=== PATIENT | female | born 1950 | race Caucasian/White ===

== ENCOUNTER 2017-02-21 17:07 | Emergency (ER) | payer BC, MEDICARE ==
[~2017-02-21] VITALS: Ht 154.9 cm; Wt 55.0 kg
[~2017-02-21 17:07] MED LIST: ABIL15TA2 PO; APIX5TAB PO; GABA600T PO; LEVA500T PO; METO50TA PO
--- NOTE | 2017-02-21 17:20 | PD ---
HPI Chief Complaint: ba Time Seen by Provider: 17:20 Travel History International Travel<30 days: No Contact w/Intl Traveler<30days: No Traveled to known affect area: No History of Present Illness HPI 67 year-old female history of bipolar disorder presents to the emergency department under a Dye act for psychiatric evaluation. Patient was at her psychiatrist's office and feels that her medication is not working. She made suicidal comments. She states this was out of frustration because she feels as though her medication is not working. Patient does report that she had a plan to overdose with pills or to take poison but states that she does not want to commit suicide. Denies any chest tightness. No difficulty breathing. No urinary symptoms. Patient has no other recent illnesses, fever, or chills. States that she has been taking her medication as directed. She has no other symptoms to report. 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.) Cardiovascular Problems: No High Cholesterol: No Chemotherapy: No Chest Pain: No Congestive Heart Failure: No COPD: No Cerebrovascular Accident: No Diabetes: No Diminished Hearing: No Endocrine: No Gastrointestinal Disorders: No GERD: No Genitourinary: Yes (HX OF UTI) Hiatal Hernia: No Hypertension: Yes Immune Disorder: No Kidney Stones: No Musculoskeletal: No Neurologic: Yes (BIPOLAR) Psychiatric: Yes (BIPOLAR) Reproductive: No Immunizations Current: Yes Migraines: No Radiation Therapy: No Renal Failure: No Seizures: No Sickle Cell Disease: No Sleep Apnea: No Thyroid Disease: No Ulcer: No Menopausal: Yes Past Surgical History Abdominal Surgery: No AICD: No Arteriovenous Shunt: No Cardiac Surgery: No Ear Surgery: No Endocrine Surgery: No Eye Surgery: No Genitourinary Surgery: No Gynecologic Surgery: No Insulin Pump: No Joint Replacement: No Oral Surgery: No Pacemaker: No Thoracic Surgery: No Other Surgery: Yes (BREAST LIFT 8 YRS AGO) Social History Alcohol Use: No Tobacco Use: No Substance Use: No Allergies-Medications (Allergen,Severity, Reaction): Coded Allergies: Codeine (Verified Allergy, Severe, 06/07/16) Reported Meds & Prescriptions Reported Meds & Active Scripts Active Reported Gabapentin 600 Mg Tab 600 Mg PO BID Metoprolol Tartrate 50 Mg Tab 50 Mg PO BID Eliquis (Apixaban) 2.5 Mg Tab 2.5 Mg PO BID Review of Systems Except as stated in HPI: all other systems reviewed are Neg Physical Exam Narrative GENERAL: Well-nourished female patient, ambulatory and in no acute distress SKIN: Focused skin assessment warm/dry. HEAD: Atraumatic. Normocephalic. EYES: Pupils equal and round. No scleral icterus. No injection or drainage. ENT: No nasal bleeding or discharge. Mucous membranes pink and moist. NECK: Trachea midline. No JVD. CARDIOVASCULAR: Regular rate and rhythm. No murmur appreciated. RESPIRATORY: No accessory muscle use. Clear to auscultation. Breath sounds equal bilaterally. GASTROINTESTINAL: Abdomen soft, non-tender, nondistended. Hepatic and splenic margins not palpable. MUSCULOSKELETAL: No obvious deformities. No clubbing. No cyanosis. No edema. NEUROLOGICAL: Awake and alert. No obvious cranial nerve deficits. Motor grossly within normal limits. Normal speech. PSYCHIATRIC: Bizarre affect. Data Data Last Documented VS Vital Signs Date Time Temp Pulse Resp B/P Pulse Ox O2 Delivery O2 Flow Rate FiO2 02/21/17 21:32 98.2 78 20 111/64 Room Air Orders Complete Blood Count With Diff (02/21/17 17:12) Basic Metabolic Panel (Bmp) (02/21/17 17:12) Urinalysis - C+S If Indicated (02/21/17 17:12) Cath For Specimen (02/21/17 17:12) Psych Screen (02/21/17 17:12) Drug Screen, Random Urine (02/21/17 17:12) Alcohol (Ethanol) (02/21/17 17:12) Sodium Chlorid 0.9% 500 Ml Inj (Ns 500 M (02/21/17 18:45) Iv Access Insert/Monitor (02/21/17 18:45) Urine Culture (02/21/17 19:05) Ceftriaxone Inj (Rocephin Inj) (02/21/17 20:00) Cephalexin (Keflex) (02/22/17 09:00) Labs Laboratory Tests Test 02/21/17 02/21/17 17:30 19:05 White Blood Count 9.3 TH/MM3 Red Blood Count 4.31 MIL/MM3 Hemoglobin 14.5 GM/DL Hematocrit 43.2 % Mean Corpuscular Volume 100.3 FL Mean Corpuscular Hemoglobin 33.8 PG Mean Corpuscular Hemoglobin 33.6 % Concent Red Cell Distribution Width 13.2 % Platelet Count 233 TH/MM3 Mean Platelet Volume 9.5 FL Neutrophils (%) (Auto) 72.6 % Lymphocytes (%) (Auto) 16.6 % Monocytes (%) (Auto) 8.7 % Eosinophils (%) (Auto) 1.7 % Basophils (%) (Auto) 0.4 % Neutrophils # (Auto) 6.8 TH/MM3 Lymphocytes # (Auto) 1.5 TH/MM3 Monocytes # (Auto) 0.8 TH/MM3 Eosinophils # (Auto) 0.2 TH/MM3 Basophils # (Auto) 0.0 TH/MM3 CBC Comment DIFF FINAL Differential Comment Sodium Level 144 MEQ/L Potassium Level 4.1 MEQ/L Chloride Level 109 MEQ/L Carbon Dioxide Level 26.2 MEQ/L Anion Gap 9 MEQ/L Blood Urea Nitrogen 41 MG/DL Creatinine 1.98 MG/DL Estimat Glomerular Filtration 25 ML/MIN Rate Random Glucose 127 MG/DL Calcium Level 9.4 MG/DL Ethyl Alcohol Level LESS THAN 3 MG/DL Urine Color YELLOW Urine Turbidity HAZY Urine pH 5.5 Urine Specific Gepp 1.011 Urine Protein TRACE mg/dL Urine Glucose (UA) NEG mg/dL Urine Ketones NEG mg/dL Urine Occult Blood TRACE Urine Nitrite NEG Urine Bilirubin NEG Urine Urobilinogen LESS THAN 2.0 MG/DL Urine Leukocyte Esterase LARGE Urine RBC 5 /hpf Urine WBC 48 /hpf Urine Squamous Epithelial 12 /hpf Cells Urine Transitional Epithelial 6 /hpf Cells Urine Bacteria MOD /hpf Urine Mucus FEW /lpf Microscopic Urinalysis Comment CULTURE INDICATED Urine Opiates Screen NEG Urine Barbiturates Screen NEG Urine Amphetamines Screen NEG Urine Benzodiazepines Screen NEG Urine Cocaine Screen NEG Urine Cannabinoids Screen NEG MDM Medical Decision Making Medical Screen Exam Complete: Yes Emergency Medical Condition: Yes Medical Record Reviewed: Yes Differential Diagnosis Mood disorder versus personality disorder versus adjustment reaction disorder versus UTI versus electrolyte abnormality Narrative Course 67 year-old female presents to emergency department under a Dye act for psychiatric evaluation. Patient appears well and without distress. CBC is without acute concern. BMP is with BUN of 41, creatinine 1.98, GFR 25. Patient does have a history of stage III chronic kidney disease. Urinalysis is hazy with trace occult blood, large leukocyte esterase, 5 RBC, 48 WBC, moderate bacteria, few mucus. Culture is indicated. Patient is given 1 g of Rocephin and will be started on Keflex by mouth. She is medically cleared to undergo psychiatric screening for further evaluation and disposition. Mental health screening discussed with the patient. Psychiatric screen ordered. Diagnosis Primary Impression: Adjustment reaction Qualified Code: F43.21 - Adjustment disorder with depressed mood Additional Impression: UTI (urinary tract infection) Qualified Code: N39.0 - Urinary tract infection with hematuria, site unspecified Condition: Stable Lexi Huston Feb 21, 2017 17:20
[2017-02-21 17:41] VITALS: TEMP 98.3
[2017-02-21 17:55] LABS: AUTOMATED NEUTROPHIL # 6.8 TH/MM3 (1.8-7.7); BASOPHIL % 0.4 % (0.0-2.0); EOSINOPHIL # 0.2 TH/MM3 (0-0.4); EOSINOPHIL % 1.7 % (0.0-4.0); HEMATOCRIT 43.2 % (35.0-46.0); HEMO FLAGS DIFF FINAL; LYMPH % 16.6 % (9.0-44.0); LYMPHOCYTE # 1.5 TH/MM3 (1.0-4.8); MEAN CELL VOLUME 100.3 FL (80.0-100.0); MEAN CORPUSCULAR HEMOGLOBIN 33.8 PG (27.0-34.0); MEAN CORPUSCULAR HGB CONC 33.6 % (32.0-36.0); MONO % 8.7 % (0.0-8.0); NEUT % 72.6 % (16.0-70.0); PLATELET COUNT 233 TH/MM3 (150-450); RED BLOOD COUNT 4.31 MIL/MM3 (4.00-5.30); RED CELL DISTRIBUTION WIDTH 13.2 % (11.6-17.2); WHITE BLOOD COUNT 9.3 TH/MM3 (4.0-11.0)
[2017-02-21 18:32] LABS: ANION GAP 9 MEQ/L (5-15); BICARBONATE 26.2 MEQ/L (21.0-32.0); BLOOD UREA NITROGEN 41 MG/DL (7-18); CHLORIDE 109 MEQ/L (98-107); GLOMERULAR FILTRATION RATE 25 ML/MIN (>89); POTASSIUM 4.1 MEQ/L (3.5-5.1); SODIUM (NA) 144 MEQ/L (136-145)
[2017-02-21] MEDS ORDERED: SODIUM CHLORID 0.9% 500 ML INJ 500 ML IV ONE (18:45)
[2017-02-21 19:32] LABS: BACTERIA, URINE MOD /hpf; BLOOD, URINE TRACE (NEG); COMMENT (UR) CULTURE INDICATED; CULTURE IF INDICATED CULTURE INDICATED; GLUCOSE,URINE NEG (NEG); KETONE, URINE NEG (NEG); MUCUS URINE FEW /lpf (OCC); NITRITE,URINE NEG (NEG); PH, URINE 5.5 (5.0-8.5); SQUAMOUS EPITHELIAL CELL URINE 12 /hpf (0-5); TRANSITIONAL EPI CELLS, URINE 6 /hpf; URINE COLOR YELLOW (YELLW/STRAW)
[2017-02-21 19:43] LABS: AMPHETAMINE, URINE NEG (NEG); BARBITURATES, URINE NEG (NEG); COCAINE, URINE NEG (NEG)
[2017-02-21] MEDS ORDERED: cefTRIAXone INJ 1,000 MG in SODIUM CHLORIDE 0.9% INJ 100 ML IV ONE (20:00)
[2017-02-21] MEDS ORDERED: GABA600T PO (20:57)
[2017-02-21] MEDS ORDERED: APIX2.5T PO (20:57)
[2017-02-21] MEDS ORDERED: METO50TA PO (20:57)
[2017-02-21 21:30] VITALS: BP 139/65; PULSE 81; RESP 18; TEMP 98.5; O2SAT 96
[2017-02-21 21:32] VITALS: BP 111/64; PULSE 78; RESP 20; TEMP 98.2
[2017-02-22 02:33] VITALS: BP 127/60; PULSE 152; RESP 18; O2SAT 97
[2017-02-22 06:24] VITALS: BP 144/65; PULSE 102; RESP 18; O2SAT 95
[2017-02-22] MEDS ORDERED: CEPHALEXIN MONOHYDRATE 500 MG CAP PO SCH (09:00)
[2017-02-22 09:52] VITALS: BP 154/63; PULSE 100; RESP 18
[2017-02-22] MEDS ORDERED: CEPH-460 PO (11:25)
[2017-02-22 11:35] VITALS: BP 154/63; TEMP 98.2
--- NOTE | 2017-02-22 15:29 | MB ---
cc: PATO POZO DATE OF CONSULTATION: 02/22/2017. REASON FOR CONSULTATION: Dye Act. PHYSICIAN REQUESTING CONSULTATION: Emergency department. HISTORY OF PRESENT ILLNESS Ms. Esparza is a 67-year-old female with history of bipolar illness who presents under a Dye Act from her psychiatrist, Dr. Aden, for suicidal ideation. Reviewing the electronic medical record, I see no prior psychiatric admissions within our system but I do see that she was seen in consultation by Dr. Hendricks in 2013. The patient was seen and examined. Chart reviewed. Case discussed with nursing staff. On my examination, there has been no evidence of any suicidality or homicidality while under observation in the emergency room. On my examination today, the patient presents as somewhat childlike. She denies any suicidal or homicidal ideation, intent or plan. She says that she would never hurt herself on account of her Protestant kee. She says that she has been working with Dr. Aden on medication adjustments but continues to feel somewhat depressed. Sleep and appetite are fair. No hopeless or worthless feelings. No anhedonia. No other depressive symptoms. No hypomanic or manic symptoms. Denies audiovisual hallucinations and I can elicit no delusional beliefs. The remainder of the psychiatric review of systems is negative. The patient does admit to describing a suicidal plan to Dr. Aden to overdose on Eliquis but she says that this was only speculation on her part in response to a question by Dr. Aden about how she might hurt herself if she wanted to, but she emphasizes that she does not wish to hurt herself at this time. With the patient's permission, we have obtained collateral from the patient's cousin with whom she lives. The patient's cousin reports that he is guardian of the patient and that the patient has a longstanding history of making similar attention-seeking suicidal threats. He has absolutely no concerns about the patient being a risk of harm to herself or others per nursing staff. He is willing to accept the patient home. PAST PSYCHIATRIC HISTORY: Includes a history of bipolar disorder. She is treated by Dr. Aden for the last four years and sees him about monthly. She reports her most recent psychiatric admission was about 40 years ago at a place called [facility]. She denies a history of suicide attempts. FAMILY HISTORY: The patient believes that her paternal aunts x2 had a mental breakdowns but otherwise denies any family psychiatric history. She denies any history of suicide or substance use disorder in the family. CHEMICAL DEPENDENCY HISTORY: The patient denies a history of abuse of drugs or alcohol. SOCIAL HISTORY: The patient lives with her cousin in [place]. 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 Denies any or legal history. Denies any access to guns or firearms. She is single with no children. She is a Protestant. PAST MEDICAL HISTORY: The patient reports a history of kidney problems. REVIEW OF SYSTEMS: No reported headache, vision or hearing changes, chest pain, shortness of breath, bowel or bladder issues. No other physical complaints. PHYSICAL EXAMINATION: VITAL SIGNS: Temperature 98.2, pulse 100, respirations 18, blood pressure 154/63, pulse oximetry 95% on room air. Physical examination was completed by the ED provider. On my examination today, the patient appears to be in no acute physical distress. No motor abnormalities noted. LABORATORY DATA: Reviewed: CBC is unremarkable. Her BMP reveals decreased GFR at 25 and mildly elevated glucose in a nonfasting sample. Toxicology negative. Alcohol level undetectable. Urinalysis with elevated white blood cells and large leukocyte esterase but urine culture is pending. MENTAL STATUS EXAMINATION: The patient is in hospital gown. She is fairly well-groomed and maintaining basic hygiene. She is awake and alert and oriented to person and hospital at least. No evidence of delirium. No motor abnormalities noted. Speech is within normal limits for rate, tone and volume. Language and fund of knowledge seem average. Mood is mildly depressed and affect is somewhat childlike. Thought process linear. No loosening of associations. No evident delusions. Denies audiovisual hallucinations. Denies suicidal or homicidal ideation, intent or plan. Insight and judgment are fair at best. ASSESSMENT AND PLAN: Bipolar disorder, currently depressed mild, F31.31. This is a 67-year-old female with psychiatric history as detailed above who presented to the emergency department under a Dye Act. Per the patient's cousin, the patient has a history of making attention-seeking suicidal threats. He has no concerns about her safety in this regard. She denies any suicidal or homicidal ideation. She appears to be attending to her basic needs. There is no evidence of any severely unstable mood, anxiety or psychotic disorder in this patient at this time. Synthesizing the above information and weighing the relevant factors and based on the available information, I clinical massage therapist that the patient does not meet Dye Act criteria. I have lifted the Dye Act. The patient is requesting discharge from the inpatient psychiatric emergency room this morning and so I must recommend her discharge. She should follow up with Dr. Aden on an outpatient basis. She should remain adherent with her psychotropic medications. I have counseled the patient regarding warning signs for need to return to the psychiatric emergency room as part of a general safety plan. The patient is otherwise psychiatrically clear for discharge from the emergency department. Thank you very much for this consultation. Pato Pozo DC/ILYA /11:39 AM /3:18 PM KASIA
== END 2017-02-22 12:05 | disposition home or self-care (01) ==
LOC: NEPC 17:07 → NEPJ 02-22 12:05
DX: F43.21 Adjustment disorder with depressed mood (principal); N39.0 Urinary tract infection, site not specified; F31.31 Bipolar disorder, current episode depressed, mild; I10 Essential (primary) hypertension; Z79.01 Long term (current) use of anticoagulants
CPT/HCPCS: 80048; 80307; 81001; 85025; 87086; 96361; 96365; 99284; J0696; J7040

== ENCOUNTER 2017-04-13 18:40 | Emergency (ER) | payer MEDICARE ==
[~2017-04-13] VITALS: Ht 152.4 cm; Wt 52.0 kg
[~2017-04-13 18:40] MED LIST changes: -ABIL15TA2 PO; +APIX2.5T PO; -APIX5TAB PO; +CEPH-460 PO; -LEVA500T PO
[2017-04-13 18:43] VITALS: BP 144/75; PULSE 89; RESP 20; TEMP 97.9; O2SAT 98
[2017-04-13] MEDS ORDERED: LORazepam 1 MG TAB PO ONE (19:30)
--- NOTE | 2017-04-13 19:39 | RADRPT ---
EXAM DATE/TIME: 04/13/2017 19:15 [facility] COMPARISON: CHEST SINGLE AP, June 07, 2016, 18:18. INDICATIONS : Light headedness with feeling of pacemaker having moved. MEDICAL HISTORY : Chronic obstructive pulmonary disease. SURGICAL HISTORY : Pacemaker. ENCOUNTER: Initial ACUITY: 1 day PAIN SCORE: 0/10 LOCATION: Bilateral chest FINDINGS: A single view of the chest demonstrates the lungs to be symmetrically aerated without evidence of mas s, infiltrate or effusion. Left-sided pacemaker with 2 intact leads. Heart normal in size. Extensive scoliosis The cardiomediastinal contours are unremarkable. Osseous structures are intact. CONCLUSION: No acute disease. Josse Phelps MD on April 13, 2017 at 19:37 Board Certified Radiologist. This report was verified electronically.
[2017-04-13] MEDS ORDERED: LURA20TA PO (20:16)
[2017-04-13] MEDS ORDERED: SERT-132 PO (20:16)
--- NOTE | 2017-04-13 21:13 | PD ---
HPI Chief Complaint: Dialysis Technician Problem Time Seen by Provider: 21:01 Travel History International Travel<30 days: No Contact w/Intl Traveler<30days: No Traveled to known affect area: No History of Present Illness HPI 67-year-old female that presents to the ED for evaluation of pacemaker moved. Patient states that she's noted today that the pacemaker move down someone. She denies any pain with. She denies any chest pain. No shortness of breath. Per patient he seems to be working. She is mainly concerned and anxious because it moved. She's had it for over a year. Patient has not contacted his inspector floor. Denies any other medical complaint. No pain. No fevers. 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.) Cardiovascular Problems: Yes High Cholesterol: No Chemotherapy: No Chest Pain: No Congestive Heart Failure: No COPD: No Cerebrovascular Accident: No Diabetes: No Diminished Hearing: No Endocrine: No Gastrointestinal Disorders: No GERD: No Genitourinary: Yes (HX OF UTI) Headaches: No Hiatal Hernia: No Heparin Induced Thrombocytopen: No Hypertension: Yes Immune Disorder: No Implanted Vascular Access Dvce: No Kidney Stones: No Musculoskeletal: No Neurologic: Yes (BIPOLAR) Psychiatric: Yes (BIPOLAR) Reproductive: No Immunizations Current: Yes Migraines: No Radiation Therapy: No Renal Failure: No Seizures: No Sickle Cell Disease: No Sleep Apnea: No Thyroid Disease: No Ulcer: No Tetanus Vaccination: < 5 Years ?: Not Menopausal: Yes Past Surgical History Abdominal Surgery: No AICD: No Arteriovenous Shunt: No Cardiac Surgery: Yes (pacemaker ) Ear Surgery: No Endocrine Surgery: No Eye Surgery: No Genitourinary Surgery: No Gynecologic Surgery: No Insulin Pump: No Joint Replacement: No Neurologic Surgery: No Oral Surgery: No Pacemaker: Yes Thoracic Surgery: No Other Surgery: Yes (BREAST LIFT 8 YRS AGO) Social History Alcohol Use: No Tobacco Use: No Substance Use: No Allergies-Medications (Allergen,Severity, Reaction): Coded Allergies: Codeine (Verified Allergy, Severe, 06/07/16) Reported Meds & Prescriptions Reported Meds & Active Scripts Active Reported Sertraline (Sertraline HCl) 50 Mg Tab 75 Mg PO DAILY Latuda (Lurasidone) 20 Mg Tab 20 Mg PO DAILY Gabapentin 600 Mg Tab 600 Mg PO BID Metoprolol Tartrate 50 Mg Tab 50 Mg PO BID Eliquis (Apixaban) 2.5 Mg Tab 2.5 Mg PO BID Review of Systems Except as stated in HPI: all other systems reviewed are Neg Physical Exam Narrative GENERAL: SKIN: Warm and dry. HEAD: Atraumatic. Normocephalic. EYES: Pupils equal and round. No scleral icterus. No injection or drainage. ENT: No nasal bleeding or discharge. Mucous membranes pink and moist. Tongue is midline. No uvula deviation. NECK: Trachea midline. No JVD. CARDIOVASCULAR: Regular rate and rhythm. No murmurs, S3, S4. Patient does have pacemaker still in place that appears to be lower than what it used to be per patient. RESPIRATORY: No accessory muscle use. Clear to auscultation. Breath sounds equal bilaterally. GASTROINTESTINAL: Abdomen soft, non-tender, nondistended. Hepatic and splenic margins not palpable. MUSCULOSKELETAL: Extremities without clubbing, cyanosis, or edema. No obvious deformities. Full range of motion of the upper and lower extremities bilaterally. 2+ pulses bilaterally. NEUROLOGICAL: Awake and alert. No obvious cranial nerve deficits. Motor grossly within normal limits. Five out of 5 muscle strength in the arms and legs. Normal speech. PSYCHIATRIC: Appropriate mood and affect; insight and judgment normal. Data Data Last Documented VS Vital Signs Date Time Temp Pulse Resp B/P Pulse Ox O2 Delivery O2 Flow Rate FiO2 04/13/17 18:43 97.9 89 20 144/75 98 Orders Electrocardiogram (04/13/17 19:19) Chest, Single Ap (04/13/17 19:19) Lorazepam (Ativan) (04/13/17 19:30) [facility] Medical Decision Making Medical Screen Exam Complete: Yes Emergency Medical Condition: Yes Medical Record Reviewed: Yes Interpretation(s) EKG showed pacer rhythm. This was read by me and my attending Dr. Pham. Last Impressions Chest X-Ray 04/13/171918 Signed Impressions: Service Date/Time: Thursday, April 13, 2017 19:15 - CONCLUSION: No acute disease. Josse Phelps MD Differential Diagnosis tamale maker malfunction versus normal exam versus pacemaker movement Narrative Course 67-year-old that presents to the ED for evaluation of movement of her pacemaker. Patient was properly examined and was found to have no signs of acute medical distress. She and her family members states that the pacemaker the moves somewhat. She denies any other symptom otherwise. She appears to be anxious because of what happened. No allergies to medication. No chest pain. Case was discussed in my attending who agrees with plan. Chest x-ray and EKG were done. EKG showed paced rhythm as well as chest x-ray showed pacemaker still in place. We had the pacemaker interrogated by Rayn who states that the pacemaker seems to be working. Patient was reassured that everything looked okay. She was told that she needs to follow with her inspector floor. See ED for worsening symptoms. Follow with PCP. Diagnosis Primary Impression: Pacemaker displacement Qualified Code: T82.128A - Pacemaker displacement, initial encounter Patient Instructions: General Instructions Additional Instructions: Follow up with your inspector floor. See ED if worst. Your EKG, CXR and interrogation of pacemaker look well. Med/Other Pt SpecificInfo: No Change to Meds Disposition: 01 DISCHARGE HOME Condition: Stable Davin Aguirre Apr 13, 2017 21:13
[2017-04-13 21:24] VITALS: BP 97/60
--- NOTE | 2017-04-14 07:03 | EKG ---
Date Performed: 04/13/2017 Time Performed: 20:05:29 PTAGE: 67 years EKG: ATRIAL SENSED, VENTRICULAR PACED RHYTHM ABNORMAL ECG PREVIOUS TRACING : 06/07/2016 17.04 Compared to previous tracing, ventricular pacing is now murray dent, second degree AV block, Wenckebach phenomena is no longer evident. DOCTOR: Jorge Sanchez Interpretating Date/Time 04/14/2017 07:02:23
== END 2017-04-13 21:25 | disposition home or self-care (01) ==
LOC: NEPC 18:40
DX: T82.128A Displacement of other cardiac electronic device, initial encounter (principal); R94.31 Abnormal electrocardiogram [ECG] [EKG]; I44.1 Atrioventricular block, second degree; M13.861 Other specified arthritis, right knee; F41.9 Anxiety disorder, unspecified; I10 Essential (primary) hypertension; F31.9 Bipolar disorder, unspecified; Z79.899 Other long term (current) drug therapy
CPT/HCPCS: 71010; 93005; 99284

== ENCOUNTER 2017-04-15 22:21 | Emergency (ER) | payer MEDICARE ==
[~2017-04-15] VITALS: Ht 152.4 cm; Wt 52.0 kg
[~2017-04-15 22:21] MED LIST changes: -CEPH-460 PO; +LURA20TA PO; +SERT-132 PO
[2017-04-15 22:39] VITALS: BP 118/57; PULSE 82; RESP 18; TEMP 99; O2SAT 97
[2017-04-15 23:12] VITALS: BP 125/70; PULSE 62; RESP 26; O2SAT 98
[2017-04-15] MEDS ORDERED: SODIUM CHLORIDE 0.9% FLUSH 10 ML FLUSH IVF PRN (23:30)
--- NOTE | 2017-04-15 23:30 | PD ---
HPI Chief Complaint: Cardiac Complaint Time Seen by Provider: 23:10 Travel History International Travel<30 days: No Contact w/Intl Traveler<30days: No Traveled to known affect area: No History of Present Illness HPI The patient is a 67-year-old female who presents to the emergency department with her daughter for generalized weakness. The daughter states that the patient's pacemaker appeared to have moved several days ago, they were evaluated in the emergency department with data chest x-ray were performed and [employer] evaluated the pacemaker and stated it was functioning. The daughter states the patient appears to have some swelling to lower extremities as well as some swelling to the face. She also states the patient has had a productive cough producing white sputum. The patient is a poor historian and when asked if she is short of breath, responds "I think so ". She denies any chest pain, nausea, vomiting, or abdominal pain. The patient does have a remote history of left lower extremity DVT, the daughter states the left lower extremity is more swollen than the right lower extremity on a chronic basis. The patient is unsure if she's had any fever, chills, or sweats. The patient's primary physician is Dr. Yolanda Braxton. The patient's marketing performance analyst is Dr. Marin. 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.) Cardiovascular Problems: Yes (PACEMAKER,) High Cholesterol: No Chemotherapy: No Chest Pain: No Congestive Heart Failure: No COPD: No Cerebrovascular Accident: No Diabetes: No Diminished Hearing: No Endocrine: No Gastrointestinal Disorders: No GERD: No Genitourinary: Yes (HX OF UTI) Headaches: No Hiatal Hernia: No Heparin Induced Thrombocytopen: No Hypertension: Yes Immune Disorder: No Implanted Vascular Access Dvce: No Kidney Stones: No Musculoskeletal: No Neurologic: Yes (BIPOLAR) Psychiatric: Yes (BIPOLAR) Reproductive: No Immunizations Current: Yes Migraines: No Radiation Therapy: No Renal Failure: No Seizures: No Sickle Cell Disease: No Sleep Apnea: No Thyroid Disease: No Ulcer: No Menopausal: Yes Past Surgical History Abdominal Surgery: No AICD: No Arteriovenous Shunt: No Cardiac Surgery: Yes (pacemaker ) Ear Surgery: No Endocrine Surgery: No Eye Surgery: No Genitourinary Surgery: No Gynecologic Surgery: No Insulin Pump: No Joint Replacement: No Neurologic Surgery: No Oral Surgery: No Pacemaker: Yes Thoracic Surgery: No Other Surgery: Yes (BREAST LIFT 8 YRS AGO) Social History Alcohol Use: No Tobacco Use: No Substance Use: No Allergies-Medications (Allergen,Severity, Reaction): Coded Allergies: Codeine (Verified Allergy, Severe, 04/15/17) Reported Meds & Prescriptions Reported Meds & Active Scripts Active Reported Sertraline (Sertraline HCl) 50 Mg Tab 75 Mg PO DAILY Latuda (Lurasidone) 20 Mg Tab 20 Mg PO DAILY Gabapentin 600 Mg Tab 600 Mg PO BID Metoprolol Tartrate 50 Mg Tab 50 Mg PO BID Eliquis (Apixaban) 2.5 Mg Tab 2.5 Mg PO BID Review of Systems ROS Limitations: Poor Historian Except as stated in HPI: all other systems reviewed are Neg Cardiovascular: No: Chest Pain or Discomfort Respiratory: Positive: Shortness of Breath Musculoskeletal: Positive: Weakness, Edema Neurologic: Positive: Weakness Physical Exam Narrative GENERAL: Awake, alert, pleasant 67-year-old female who appears her stated age and is in no acute respiratory distress. SKIN: Focused skin assessment warm/dry. HEAD: Atraumatic. Normocephalic. EYES: Pupils equal and round. No scleral icterus. No injection or drainage. ENT: No nasal bleeding or discharge. Mucous membranes pink and moist. NECK: Trachea midline. No JVD. CARDIOVASCULAR: Regular rate and rhythm. No murmur appreciated. Heart rate in the 60s. Pacemaker in place left chest wall just inferior to scar. RESPIRATORY: No accessory muscle use. Minimally diminished breath sounds bilaterally in the bases. GASTROINTESTINAL: Abdomen soft, non-tender, nondistended. No rebound tenderness. MUSCULOSKELETAL: The left lower extremity is more swollen than the right lower extremity, chronic per daughter. No obvious edema. NEUROLOGICAL: Awake and alert. No obvious cranial nerve deficits. Motor grossly within normal limits. Normal speech. Follows simple commands. PSYCHIATRIC: Appropriate mood and affect; insight and judgment normal. Data Data Last Documented VS Vital Signs Date Time Temp Pulse Resp B/P Pulse Ox O2 Delivery O2 Flow Rate FiO2 04/15/17 23:12 62 26 125/70 98 Room Air 04/15/17 22:39 99.0 Orders Complete Blood Count With Diff (04/15/17 23:20) Comprehensive Metabolic Panel (04/15/17 23:20) B-Type Natriuretic Peptide (04/15/17 23:20) Magnesium (Mg) (04/15/17 23:20) Ckmb (Isoenzyme) Profile (04/15/17 23:20) Troponin I (04/15/17 23:20) Urinalysis - C+S If Indicated (04/15/17 23:20) Iv Access Insert/Monitor (04/15/17 23:20) Ecg Monitoring (04/15/17 23:20) Oximetry (04/15/17 23:20) Oxygen Administration (04/15/17 23:20) Chest, Single Ap (04/15/17 23:20) Sodium Chloride 0.9% Flush (Ns Flush) (04/15/17 23:30) Labs Laboratory Tests Test 04/15/17 04/16/17 23:20 00:30 White Blood Count 9.8 TH/MM3 Red Blood Count 4.27 MIL/MM3 Hemoglobin 14.2 GM/DL Hematocrit 42.8 % Mean Corpuscular Volume 100.3 FL Mean Corpuscular Hemoglobin 33.2 PG Mean Corpuscular Hemoglobin 33.1 % Concent Red Cell Distribution Width 12.9 % Platelet Count 225 TH/MM3 Mean Platelet Volume 8.7 FL Neutrophils (%) (Auto) 76.4 % Lymphocytes (%) (Auto) 14.0 % Monocytes (%) (Auto) 7.4 % Eosinophils (%) (Auto) 1.9 % Basophils (%) (Auto) 0.3 % Neutrophils # (Auto) 7.5 TH/MM3 Lymphocytes # (Auto) 1.4 TH/MM3 Monocytes # (Auto) 0.7 TH/MM3 Eosinophils # (Auto) 0.2 TH/MM3 Basophils # (Auto) 0.0 TH/MM3 CBC Comment DIFF FINAL Differential Comment Sodium Level 145 MEQ/L Potassium Level 4.1 MEQ/L Chloride Level 115 MEQ/L Carbon Dioxide Level 23.5 MEQ/L Anion Gap 7 MEQ/L Blood Urea Nitrogen 32 MG/DL Creatinine 1.92 MG/DL Estimat Glomerular Filtration 26 ML/MIN Rate Random Glucose 121 MG/DL Calcium Level 9.2 MG/DL Magnesium Level 2.3 MG/DL Total Bilirubin 0.4 MG/DL Aspartate Amino Transf 16 U/L (AST/SGOT) Alanine Aminotransferase 15 U/L (ALT/SGPT) Alkaline Phosphatase 70 U/L Total Creatine Kinase 99 U/L Troponin I LESS THAN 0.02 NG/ML B-Type Natriuretic Peptide 149 PG/ML Total Protein 6.9 GM/DL Albumin 3.5 GM/DL Urine Color LIGHT-YELLOW Urine Turbidity CLEAR Urine pH 6.0 Urine Specific [place] 1.007 Urine Protein NEG mg/dL Urine Glucose (UA) NEG mg/dL Urine Ketones NEG mg/dL Urine Occult Blood NEG Urine Nitrite NEG Urine Bilirubin NEG Urine Urobilinogen LESS THAN 2.0 MG/DL Urine Leukocyte Esterase TRACE Urine RBC LESS THAN 1 /hpf Urine WBC 1 /hpf Microscopic Urinalysis Comment CATH-CULT NOT IND MDM Medical Decision Making Medical Screen Exam Complete: Yes Emergency Medical Condition: Yes Medical Record Reviewed: Yes Interpretation(s) EKG reveals electronic ventricular paced rhythm at a rate of 64. Laboratory Tests Test 04/15/17 04/16/17 23:20 00:30 White Blood Count 9.8 TH/MM3 Red Blood Count 4.27 MIL/MM3 Hemoglobin 14.2 GM/DL Hematocrit 42.8 % Mean Corpuscular Volume 100.3 FL Mean Corpuscular Hemoglobin 33.2 PG Mean Corpuscular Hemoglobin 33.1 % Concent Red Cell Distribution Width 12.9 % Platelet Count 225 TH/MM3 Mean Platelet Volume 8.7 FL Neutrophils (%) (Auto) 76.4 % Lymphocytes (%) (Auto) 14.0 % Monocytes (%) (Auto) 7.4 % Eosinophils (%) (Auto) 1.9 % Basophils (%) (Auto) 0.3 % Neutrophils # (Auto) 7.5 TH/MM3 Lymphocytes # (Auto) 1.4 TH/MM3 Monocytes # (Auto) 0.7 TH/MM3 Eosinophils # (Auto) 0.2 TH/MM3 Basophils # (Auto) 0.0 TH/MM3 CBC Comment DIFF FINAL Differential Comment Sodium Level 145 MEQ/L Potassium Level 4.1 MEQ/L Chloride Level 115 MEQ/L Carbon Dioxide Level 23.5 MEQ/L Anion Gap 7 MEQ/L Blood Urea Nitrogen 32 MG/DL Creatinine 1.92 MG/DL Estimat Glomerular Filtration 26 ML/MIN Rate Random Glucose 121 MG/DL Calcium Level 9.2 MG/DL Magnesium Level 2.3 MG/DL Total Bilirubin 0.4 MG/DL Aspartate Amino Transf 16 U/L (AST/SGOT) Alanine Aminotransferase 15 U/L (ALT/SGPT) Alkaline Phosphatase 70 U/L Total Creatine Kinase 99 U/L Troponin I LESS THAN 0.02 NG/ML B-Type Natriuretic Peptide 149 PG/ML Total Protein 6.9 GM/DL Albumin 3.5 GM/DL Urine Color LIGHT-YELLOW Urine Turbidity CLEAR Urine pH 6.0 Urine Specific [place] 1.007 Urine Protein NEG mg/dL Urine Glucose (UA) NEG mg/dL Urine Ketones NEG mg/dL Urine Occult Blood NEG Urine Nitrite NEG Urine Bilirubin NEG Urine Urobilinogen LESS THAN 2.0 MG/DL Urine Leukocyte Esterase TRACE Urine RBC LESS THAN 1 /hpf Urine WBC 1 /hpf Microscopic Urinalysis Comment CATH-CULT NOT IND Chest x-ray reveals stable chest x-ray. No acute cardiopulmonary disease identified. Differential Diagnosis Differential diagnosis includes pacemaker malfunction, bronchitis, pneumonia, congestive heart failure, pleural effusion, volume overload, acute coronary syndrome, hyponatremia, acute renal failure. Narrative Course IV was established, labs are drawn and sent, and the patient was placed on cardiac telemetry monitoring and continuous pulse oximetry monitoring. EKG was ordered and interpreted. Chest x-ray was obtained. EKG reveals electronic ventricular paced rhythm, therefore, I believe the pacemaker is still place and functioning properly. The patient's creatinine was 1.9, previous was up 1.98 and 2.4. Chest x-rays unremarkable, stable, no evidence of acute volume overload. BNP is minimally elevated at 149. Diagnosis Primary Impression: Edema Qualified Code: R60.9 - Edema, unspecified type Additional Impression: Generalized weakness Patient Instructions: General Instructions Additional Instructions: Please provide the patient a copy of her chest x-ray results, UA results, and lab results at discharge. Follow-up with your primary physician. Monitor weight daily and keep a log. Return if symptoms worsen or progress. Med/Other Pt SpecificInfo: Prescription(s) given Disposition: 01 DISCHARGE HOME Condition: Stable Javon Fitch MD Apr 15, 2017 23:30
[2017-04-15 23:43] LABS: AUTOMATED NEUTROPHIL # 7.5 TH/MM3 (1.8-7.7); BASOPHIL % 0.3 % (0.0-2.0); EOSINOPHIL # 0.2 TH/MM3 (0-0.4); EOSINOPHIL % 1.9 % (0.0-4.0); HEMATOCRIT 42.8 % (35.0-46.0); HEMO FLAGS DIFF FINAL; LYMPHOCYTE # 1.4 TH/MM3 (1.0-4.8); MEAN CELL VOLUME 100.3 FL (80.0-100.0); MEAN CORPUSCULAR HEMOGLOBIN 33.2 PG (27.0-34.0); MEAN CORPUSCULAR HGB CONC 33.1 % (32.0-36.0); MONO % 7.4 % (0.0-8.0); NEUT % 76.4 % (16.0-70.0); PLATELET COUNT 225 TH/MM3 (150-450); RED BLOOD COUNT 4.27 MIL/MM3 (4.00-5.30); RED CELL DISTRIBUTION WIDTH 12.9 % (11.6-17.2); WHITE BLOOD COUNT 9.8 TH/MM3 (4.0-11.0)
--- NOTE | 2017-04-15 23:46 | RADRPT ---
EXAM DATE/TIME: 04/15/2017 23:17 [facility] COMPARISON: CHEST SINGLE AP, April 13, 2017, 19:15. INDICATIONS : Chest pain. MEDICAL HISTORY : Chronic obstructive pulmonary disease. SURGICAL HISTORY : Pacemaker. ENCOUNTER: Initial ACUITY: 1 day PAIN SCORE: 3/10 LOCATION: chest substernal. FINDINGS: Portable AP view of the chest demonstrates a normal-sized cardiac silhouette with calcification of th e aorta. Lungs are underinflated. No effusion, consolidation, or pneumothorax is visualized. Left nav[address] st wall cardiac pacing device remains present. There is severe thoracolumbar scoliosis. CONCLUSION: Stable chest x-ray. No acute cardiopulmonary abnormality is identified. Vincent Abarca MD on April 15, 2017 at 23:42 Board Certified Radiologist. This report was verified electronically.
[2017-04-16 00:05] LABS: ANION GAP 7 MEQ/L (5-15); AST (GOT) 16 U/L (15-37); BICARBONATE 23.5 MEQ/L (21.0-32.0); BLOOD UREA NITROGEN 32 MG/DL (7-18); CHLORIDE 115 MEQ/L (98-107); GLOMERULAR FILTRATION RATE 26 ML/MIN (>89); MAGNESIUM 2.3 MG/DL (1.5-2.5); POTASSIUM 4.1 MEQ/L (3.5-5.1); SODIUM (NA) 145 MEQ/L (136-145)
[2017-04-16 00:10] LABS: ALKALINE PHOSPHATASE 70 U/L (45-117); ALT (GPT) 15 U/L (10-53); TOTAL BILIRUBIN ADULT 0.4 MG/DL (0.2-1.0)
[2017-04-16 00:11] LABS: CREATINE KINASE 99 U/L (26-192)
[2017-04-16 00:54] LABS: BLOOD, URINE NEG (NEG); GLUCOSE,URINE NEG (NEG); KETONE, URINE NEG (NEG); NITRITE,URINE NEG (NEG); URINE COLOR LIGHT-YELLOW (YELLW/STRAW)
[2017-04-16 00:55] LABS: COMMENT (UR) CATH-CULT NOT IND; CULTURE IF INDICATED CATH CULTURE NOT IND
[2017-04-16 01:12] VITALS: O2SAT 98
--- NOTE | 2017-04-16 20:54 | EKG ---
Date Performed: 04/15/2017 Time Performed: 23:18:16 PTAGE: 67 years EKG: ELECTRONIC VENTRICULAR PACEMAKER ABNORMAL RHYTHM ECG PREVIOUS TRACING : 04/13/2017 20.05 Compared to prior tracing no significant change DOCTOR: Mary Hess Interpretating Date/Time 04/16/2017 20:52:29
== END 2017-04-16 01:20 | disposition home or self-care (01) ==
LOC: NEPC 22:21
DX: R60.9 Edema, unspecified (principal); R53.1 Weakness; R06.02 Shortness of breath; R94.31 Abnormal electrocardiogram [ECG] [EKG]; I10 Essential (primary) hypertension; M13.861 Other specified arthritis, right knee; F41.9 Anxiety disorder, unspecified; F31.9 Bipolar disorder, unspecified; Z79.899 Other long term (current) drug therapy
CPT/HCPCS: 71010; 80053; 81001; 82550; 83735; 83880; 84484; 85025; 93005; 99284